=== PATIENT | male | born 1965 | race Caucasian/White ===

== ENCOUNTER 2017-02-18 16:55 | Emergency (ER) | payer OTHER ==
[~2017-02-18] VITALS: Ht 185.4 cm; Wt 95.3 kg
[~2017-02-18 16:55] MED LIST: FLEXERIL10 MG PO; FLEXERIL5 MG PO; HYDROCODONE BIT1 T11 PO; KEFLEX500 MG PO; MEDROL DOSEPAK4 MG PO; MOTRIN50 MG PO; MOTRIN800 MG PO; Motrin,Rufen800 MG PO; NAPROSYN500 MG PO; NKHM; NORCO 5-325 TA1 EACH PO; PERCOCET 325 MG1 TA2 PO; PRILOSEC20 M1 PO
[2017-02-18 17:05] VITALS: BP 134/68
[2017-02-18] MEDS ORDERED: HYDROCODONE BIT1 T11 PO (19:04)
[2017-02-18] MEDS ORDERED: CYCLOBENZAPRINE5 M3 PO (19:04)
[2017-02-18] MEDS ORDERED: MEDROL DOSEPAK4 MG PO (19:04)
== END 2017-02-19 01:05 | disposition home or self-care (01) ==
LOC: ED 16:55
DX: M54.5 Low back pain (principal); F17.200 Nicotine dependence, unspecified, uncomplicated; Z79.899 Other long term (current) drug therapy; Z88.4 Allergy status to anesthetic agent; W19.XXXA Unspecified fall, initial encounter; Y93.89 Activity, other specified; Y92.89 Other specified places as the place of occurrence of the external cause; Y99.9 Unspecified external cause status

== ENCOUNTER → 2017-02-19 | Outpatient (CLI) | payer OTHER ==
[~2017-02-19] MED LIST changes: +CYCLOBENZAPRINE5 M3 PO
== END | disposition home or self-care (01) ==
LOC: CARD 15:24
DX: R55 Syncope and collapse (principal)

== ENCOUNTER → 2017-03-01 | Outpatient (CLI) | payer OTHER | END | disposition home or self-care (01) | LOC: RAD 09:56 | DX: M25.562 Pain in left knee (principal) ==

== ENCOUNTER 2017-08-27 15:20 | Emergency (ER) | payer OTHER ==
[2017-08-27 15:41] LABS: BASO % 0.4 % (0.0-1.0); EOS # 0.2 10*3/uL (0.0-0.4); EOS % 1.8 % (1.0-4.0); HEMATOCRIT 39.5 % (42.0-52.0); HEMOGLOBIN 13.9 g/dl (14.0-18.0); LYMPH # 2.9 10*3/uL (1.3-4.4); LYMPH % 32.8 % (27.0-41.0); MEAN CELL VOLUME 93.2 fl (80.0-94.0); MEAN CORPUSCULAR HGB 32.8 pg (27.0-31.0); MEAN CORPUSCULAR HGB CONC 35.2 g/dl (33.0-37.0); MEAN PLATELET VOLUME 9.7 fl (9.6-12.3); MONO # 0.8 10*3/uL (0.1-1.0); MONO % 9.2 % (3.0-9.0); NEUT # 4.9 10*3/uL (2.3-7.9); NEUT % 55.5 % (47.0-73.0); PLATELET COUNT AUTOMATED 266 10*3/uL (130-400); RED BLOOD COUNT 4.24 10*6/uL (4.50-5.90); RED CELL DISTRI WIDTH 13.2 % (0-14.5); WHITE BLOOD COUNT 8.9 10*3/uL (4.8-10.8)
[2017-08-27 15:55] LABS: ALBUMIN 3.9 gm/dl (3.1-4.5); ALKALINE PHOSPHATASE 81 U/L (45-117); BUN 8 mg/dl (7-24); CHLORIDE 107 mmol/L (98-107); CREATININE 0.75 mg/dL (0.70-1.30); MAGNESIUM 2.3 mg/dL (1.5-2.1); POTASSIUM 3.5 mmol/L (3.5-5.1); SGOT/AST 23 IU/L (3-35); SGPT/ALT 34 U/L (12-78); SODIUM 139 mmol/L (136-145)
[2017-08-27 16:24] LABS: URINE AMPHETAMINES < 1000 (1000ng/ml); URINE BARBITURATES < 200 (200ng/ml); URINE BENZODIAZEPINES < 200 (200ng/ml); URINE CANNABINOIDS (THC) < 50 (50ng/ml); URINE COCAINE < 300 (300ng/ml); URINE METHADONE < 300 (300ng/ml); URINE OPIATES < 300 (300ng/ml)
[2017-08-27 16:26] LABS: URINE PHENCYCLIDINE < 25 (25ng/ml)
[2017-08-27 18:21] VITALS: BP 136/75
== END 2017-08-27 18:37 | disposition left against medical advice (07) ==
LOC: ED 15:20
PROVIDERS: Emergency Medicine
DX: I63.9 Cerebral infarction, unspecified (principal); Z79.899 Other long term (current) drug therapy; Z88.4 Allergy status to anesthetic agent

== ENCOUNTER → 2017-09-20 | Outpatient (CLI) | payer OTHER | END | disposition home or self-care (01) | LOC: CARD 08:03 → US 09:30 | DX: I65.23 Occlusion and stenosis of bilateral carotid arteries (principal); I51.7 Cardiomegaly ==

== ENCOUNTER → 2018-03-26 | Outpatient (CLI) | payer OTHER | END | disposition home or self-care (01) | LOC: RAD 14:38 | DX: M25.474 Effusion, right foot (principal) ==

== ENCOUNTER 2019-08-06 11:26 | Emergency (ER) | payer OTHER ==
[~2019-08-06] VITALS: Ht 187.9 cm; Wt 95.3 kg
[2019-08-06 11:26] VITALS: BP 154/81
[2019-08-06 12:28] LABS: HEMATOCRIT 45.5 % (42.0-52.0); HEMOGLOBIN 15.4 g/dl (14.0-18.0); MEAN CORPUSCULAR HGB 32.8 pg (27.0-31.0); MEAN CORPUSCULAR HGB CONC 33.8 g/dl (33.0-37.0); MEAN PLATELET VOLUME 9.7 fl (9.6-12.3); PLATELET COUNT AUTOMATED 327 10*3/uL (130-400); RED BLOOD COUNT 4.69 10*6/uL (4.50-5.90); RED CELL DISTRI WIDTH 13.6 % (0-14.5); WHITE BLOOD COUNT 17.2 10*3/uL (4.8-10.8)
[2019-08-06 12:39] LABS: ACT PARTIAL THROMBO TIME 25.8 SECONDS (20.0-32.1); INTERNATIONAL NORM RATIO 0.9 (2.0-3.5)
[2019-08-06 12:45] LABS: ALBUMIN 4.1 gm/dl (3.1-4.5); ALKALINE PHOSPHATASE 81 U/L (45-117); BUN 16 mg/dl (7-24); CHLORIDE 108 mmol/L (98-107); CREATININE 0.72 mg/dL (0.70-1.30); POTASSIUM 4.3 mmol/L (3.5-5.1); SGOT/AST 13 IU/L (3-35); SGPT/ALT 33 U/L (12-78); SODIUM 140 mmol/L (136-145); TOTAL PROTEIN 7.5 gm/dL (6.4-8.2)
[2019-08-06 12:49] LABS: PLATELET SUFFICIENCY NORMAL (NORMAL); TOTAL CELLS COUNTED 100 #CELLS
[2019-08-06] MEDS ORDERED: CLINDAMYCIN150 MG PO (15:01)
[2019-08-06] MEDS ORDERED: CIPRO500 MG PO (15:01)
[2019-08-06] MEDS ORDERED: NORCO 5-325 TA1 EACH PO (15:03)
[2019-08-07] MEDS ORDERED: GABAPENTIN400 MG PO (12:41)
[2019-08-07] MEDS ORDERED: ST. JOSEPH ASPI81 MG PO (12:43)
== END 2019-08-06 15:34 | disposition left against medical advice (07) ==
LOC: ED 11:26
PROVIDERS: Emergency Medicine
DX: K11.20 Sialoadenitis, unspecified (principal); F17.200 Nicotine dependence, unspecified, uncomplicated; Z88.4 Allergy status to anesthetic agent; Z79.899 Other long term (current) drug therapy; Z86.73 Personal history of transient ischemic attack (TIA), and cerebral infarction without residual deficits

== ENCOUNTER 2019-08-07 05:54 | Inpatient (IN) | payer OTHER ==
[~2019-08-07] VITALS: Ht 187.9 cm; Wt 86.7 kg
[~2019-08-07 05:54] MED LIST changes: +CIPRO500 MG PO; +CLINDAMYCIN150 MG PO
[2019-08-07 05:55] VITALS: BP 135/104
[2019-08-07 06:39] LABS: HEMATOCRIT 43.6 % (42.0-52.0); HEMOGLOBIN 14.9 g/dl (14.0-18.0); MEAN CELL VOLUME 96.5 fl (80.0-94.0); MEAN CORPUSCULAR HGB CONC 34.2 g/dl (33.0-37.0); MEAN PLATELET VOLUME 9.6 fl (9.6-12.3); PLATELET COUNT AUTOMATED 301 10*3/uL (130-400); RED BLOOD COUNT 4.52 10*6/uL (4.50-5.90); RED CELL DISTRI WIDTH 13.4 % (0-14.5); WHITE BLOOD COUNT 18.1 10*3/uL (4.8-10.8)
[2019-08-07 06:55] LABS: BUN 11 mg/dl (7-24); CHLORIDE 106 mmol/L (98-107); CREATININE 0.72 mg/dL (0.70-1.30); POTASSIUM 4.1 mmol/L (3.5-5.1); SODIUM 138 mmol/L (136-145)
[2019-08-07 06:57] LABS: PLATELET SUFFICIENCY NORMAL (NORMAL); TOTAL CELLS COUNTED 100 #CELLS
[2019-08-07 07:25] VITALS: BP 144/84
[2019-08-07 08:37] VITALS: BP 142/82
--- NOTE | 2019-08-07 08:38 | NUR ---
Patient resting in bed with eyes closed. Respirations easy and regular. No signs of distress/discomfort. Call light within reach.
--- NOTE | 2019-08-07 09:32 | NUR ---
Resident in to see patient for exam. Patient reported to her that his pain was back, 10/10 described as sharp, difficulty to swallow. Patient given morphine for pain and encouraged to use call light will continue to monitor.
--- NOTE | 2019-08-07 10:58 | NUR ---
Bed assigned for patient. Inpatient nurse will call when ready for report. Will continue to monitor.
[2019-08-07 11:40] VITALS: BP 125/77
--- NOTE | 2019-08-07 11:45 | NUR ---
Time: 1144 A 54 year old MALE admitted to 5E under services of DR. EITAN GILES,MARIAN. Pt. arrived via ambulatory from ER. Chief complaint: SUBMANDIBULAR SIALOADENITIS. SAM FARLEY
--- NOTE | 2019-08-07 12:00 | NUR ---
IN TO ROOM. PATIENT AWAKE, ALERT AND ORIENTED SITTING ON SIDE OF BED. C/O OF PAIN TO LEFT JAW AREA WITH SWALLOWING. NO SOB NOTED AND NO S/S OF DISTRESS. RESPIRATIONS ARE EASY AND REGULAR. WARM COMPRESS APPLIED TO SUBMANDIBULAR AREA. FAMILY IN ROOM. WILL CONTINUE TO MONITOR.
[2019-08-07] MEDS ORDERED: GABAPENTIN400 MG PO (12:41)
[2019-08-07] MEDS ORDERED: ST. JOSEPH ASPI81 MG PO (12:43)
--- NOTE | 2019-08-07 13:00 | NUR ---
PT COMPLAINS OF THROAT/JAW PAIN ON THE LEFT SIDE THAT WORSENS WITH SWALLOWING. PT RATES PAIN 10/10. PRN MORPHINE ADMINSTERED AT THIS TIME. WILL MONITOR FOR EFFECTIVENESS.
--- NOTE | 2019-08-07 14:30 | NUR ---
PATIENT SLEEPING IN BED. SO S/S OF DISTRESS OR PAIN. PRN MORPHINE CONSIDERED EFFECTIVE.
[2019-08-07 16:00] VITALS: BP 128/82
--- NOTE | 2019-08-07 17:30 | NUR ---
PT COMPLAINS OF L JAW/THROAT PAIN THAT WORSENS WITH SWALLOWING. PATIENT RATES PAIN A 8/10. PRN MORPHONE ADMINISTERED AT THIS TIME. WILL MONITOR FOR EFFECTIVENESS.
--- NOTE | 2019-08-07 18:24 | NUR ---
IN TO ROOM. PATIENT RESTING WITH EYES CLOSED. MORPHINE CONSIDERED EFFECTIVE. NO STATED COMPLAINTS.
[2019-08-07 20:00] VITALS: BP 124/71
[2019-08-08] VITALS: BP 131/68
--- NOTE | 2019-08-08 04:20 | NUR ---
PT SLEEPING IN BED ON LEFT SIDE. RESP-EASY AND REGULAR. CALL LIGHT IN REACH.
[2019-08-08 06:17] LABS: HEMATOCRIT 42.1 % (42.0-52.0); HEMOGLOBIN 14.2 g/dl (14.0-18.0); MEAN CELL VOLUME 96.8 fl (80.0-94.0); MEAN CORPUSCULAR HGB 32.6 pg (27.0-31.0); MEAN CORPUSCULAR HGB CONC 33.7 g/dl (33.0-37.0); MEAN PLATELET VOLUME 10.1 fl (9.6-12.3); PLATELET COUNT AUTOMATED 300 10*3/uL (130-400); RED BLOOD COUNT 4.35 10*6/uL (4.50-5.90); RED CELL DISTRI WIDTH 13.2 % (0-14.5); WHITE BLOOD COUNT 23.4 10*3/uL (4.8-10.8)
[2019-08-08 06:19] LABS: BUN 10 mg/dl (7-24); CHLORIDE 105 mmol/L (98-107); POTASSIUM 3.7 mmol/L (3.5-5.1); SODIUM 139 mmol/L (136-145)
[2019-08-08 06:54] LABS: PLATELET SUFFICIENCY NORMAL (NORMAL); TOTAL CELLS COUNTED 100 #CELLS
[2019-08-08 08:00] VITALS: BP 145/83
--- NOTE | 2019-08-08 11:42 | NUR ---
MORPHINE GIVEN FOR RT SIDED FACIAL PAIN RATED 8/10 INTERMITTENT AND THROBING. CALL LIGHT IN REACH. WILL MONITOR. EDUCATED ON PAIN MGMT.
[2019-08-08 12:00] VITALS: BP 142/85
--- NOTE | 2019-08-08 14:06 | NUR ---
NORCO GIVEN FOR PAIN RATED 4/10 TO RT SIDE OF FACE FOLLOWING MORPHINE. CALL LIGHT IN REACH. WILL MONITOR.
[2019-08-08 16:00] VITALS: BP 135/80
[2019-08-08 20:00] VITALS: BP 130/75
[2019-08-09] VITALS: BP 128/69
[2019-08-09 06:23] LABS: BUN 15 mg/dl (7-24); CHLORIDE 105 mmol/L (98-107); SODIUM 138 mmol/L (136-145)
[2019-08-09 06:33] LABS: CREATININE 0.79 mg/dL (0.70-1.30)
[2019-08-09 06:43] LABS: BASO % 0.2 % (0.0-1.0); EOS # 0.2 10*3/uL (0.0-0.4); EOS % 1.5 % (1.0-4.0); HEMOGLOBIN 14.2 g/dl (14.0-18.0); LYMPH # 2.9 10*3/uL (1.3-4.4); LYMPH % 20.4 % (27.0-41.0); MEAN CELL VOLUME 96.6 fl (80.0-94.0); MEAN CORPUSCULAR HGB 32.6 pg (27.0-31.0); MEAN CORPUSCULAR HGB CONC 33.8 g/dl (33.0-37.0); MEAN PLATELET VOLUME 10.2 fl (9.6-12.3); MONO # 1.1 10*3/uL (0.1-1.0); MONO % 7.4 % (3.0-9.0); NEUT % 70.1 % (47.0-73.0); PLATELET COUNT AUTOMATED 328 10*3/uL (130-400); RED BLOOD COUNT 4.35 10*6/uL (4.50-5.90); RED CELL DISTRI WIDTH 13.2 % (0-14.5); WHITE BLOOD COUNT 14.3 10*3/uL (4.8-10.8)
[2019-08-09 08:00] VITALS: BP 122/78
[2019-08-09] MEDS ORDERED: AUGMENTIN 875875 MG PO (08:37)
--- NOTE | 2019-08-09 09:42 | NUR ---
PT DISCHARGED AT THIS TIME. IV REMOVED AND PRESSURE DRESSING APPLIED. VERBALIZED UNDERSTANDING OF DISCHARGE INSTRUCTION.
== END 2019-08-09 11:37 | disposition home or self-care (01) | DRG 156 ==
LOC: ED 05:54 → 5E 06:55 → EDHOLD 06:55 → 5E 11:04
PROVIDERS: Nurse Practitioner; Student in an Organized Health Care Education/Training Program; ADMIT Internal Medicine
DX: K11.21 Acute sialoadenitis (principal); K21.9 Gastro-esophageal reflux disease without esophagitis; F17.210 Nicotine dependence, cigarettes, uncomplicated; D72.810 Lymphocytopenia; R73.9 Hyperglycemia, unspecified; D72.829 Elevated white blood cell count, unspecified; K02.9 Dental caries, unspecified; T38.0X5A Adverse effect of glucocorticoids and synthetic analogues, initial encounter; Y92.89 Other specified places as the place of occurrence of the external cause; Z82.49 Family history of ischemic heart disease and other diseases of the circulatory system; Z88.4 Allergy status to anesthetic agent; Z79.899 Other long term (current) drug therapy; Z79.82 Long term (current) use of aspirin; Z71.6 Tobacco abuse counseling; Z72.89 Other problems related to lifestyle

== ENCOUNTER 2019-09-02 11:36 | Inpatient (IN) | payer OTHER ==
[~2019-09-02] VITALS: Ht 185.4 cm; Wt 82.2 kg
[2019-09-02] VITALS (9 sets, daily range): BP systolic 121–149; BP diastolic 54–87
[~2019-09-02 11:36] MED LIST changes: +AUGMENTIN 875875 MG PO; +GABAPENTIN400 MG PO; +ST. JOSEPH ASPI81 MG PO
[2019-09-02 11:57] LABS: BASO % 0.2 % (0.0-1.0); EOS # 0.1 10*3/uL (0.0-0.4); EOS % 0.8 % (1.0-4.0); HEMATOCRIT 40.7 % (42.0-52.0); HEMOGLOBIN 13.9 g/dl (14.0-18.0); LYMPH # 2.6 10*3/uL (1.3-4.4); LYMPH % 20.7 % (27.0-41.0); MEAN CELL VOLUME 95.5 fl (80.0-94.0); MEAN CORPUSCULAR HGB 32.6 pg (27.0-31.0); MEAN CORPUSCULAR HGB CONC 34.2 g/dl (33.0-37.0); MEAN PLATELET VOLUME 9.4 fl (9.6-12.3); MONO # 0.8 10*3/uL (0.1-1.0); MONO % 6.1 % (3.0-9.0); NEUT # 9.2 10*3/uL (2.3-7.9); PLATELET COUNT AUTOMATED 320 10*3/uL (130-400); RED BLOOD COUNT 4.26 10*6/uL (4.50-5.90); RED CELL DISTRI WIDTH 13.1 % (0-14.5); WHITE BLOOD COUNT 12.7 10*3/uL (4.8-10.8)
[2019-09-02 12:14] LABS: ALKALINE PHOSPHATASE 71 U/L (45-117); BUN 11 mg/dl (7-24); CHLORIDE 106 mmol/L (98-107); CREATININE 0.78 mg/dL (0.70-1.30); POTASSIUM 3.7 mmol/L (3.5-5.1); SGOT/AST 26 IU/L (3-35); SGPT/ALT 26 U/L (12-78); SODIUM 135 mmol/L (136-145); TOTAL PROTEIN 7.2 gm/dL (6.4-8.2)
[2019-09-02 12:18] LABS: TROPONIN I < 0.015 ng/ml (<0.045)
--- NOTE | 2019-09-02 17:25 | NUR ---
ORTHOSTATIC BLOOD PRESSURES AND PULSE RATES SUPINE: 115/61 PULSE 60 SITTIN/68 PULSE 67 STANDIN/74 PULSE 72
[2019-09-02 19:46] LABS: BILIRUBIN NEGATIVE (NEGATIVE); BLOOD NEGATIVE (NEGATIVE); CLARITY SL CLOUDY (CLEAR); COLOR YELLOW (YELLOW); GLUCOSE NEGATIVE (NEGATIVE); KETONE TRACE (NEGATIVE); LEUKO ESTERASE NEGATIVE (NEGATIVE); NITRITE NEGATIVE (NEGATIVE); PH 6.5 (5.0-9.0); SPECIFIC GRAVITY 1.015 (1.005-1.030); UROBILINOGEN 0.2 E.U./dl (0.2-1.0)
[2019-09-02 19:55] LABS: EPITHELIAL CELLS 0-2
--- NOTE | 2019-09-02 20:23 | NUR ---
PATIENT SLEEPING. AROUSES EASILY FOR SHIFT ASSESSMENT. STATES HIS CHEST PAIN IS BETTER THAN EARLIER, RATED 2/10. NO FURTHER VOICED COMPLAINTS AT THIS TIME. PLEASANT AND COOPERATIVE WITH CARE. CALL LIGHT IN REACH.
[2019-09-03] VITALS: BP 118/75
[2019-09-03 07:01] LABS: BASO % 0.3 % (0.0-1.0); EOS # 0.3 10*3/uL (0.0-0.4); EOS % 2.9 % (1.0-4.0); HEMATOCRIT 41.3 % (42.0-52.0); HEMOGLOBIN 13.9 g/dl (14.0-18.0); LYMPH % 22.6 % (27.0-41.0); MEAN CELL VOLUME 97.9 fl (80.0-94.0); MEAN CORPUSCULAR HGB 32.9 pg (27.0-31.0); MEAN CORPUSCULAR HGB CONC 33.7 g/dl (33.0-37.0); MEAN PLATELET VOLUME 9.4 fl (9.6-12.3); MONO # 0.8 10*3/uL (0.1-1.0); MONO % 8.6 % (3.0-9.0); NEUT # 5.7 10*3/uL (2.3-7.9); NEUT % 65.3 % (47.0-73.0); PLATELET COUNT AUTOMATED 305 10*3/uL (130-400); RED BLOOD COUNT 4.22 10*6/uL (4.50-5.90); RED CELL DISTRI WIDTH 13.3 % (0-14.5); WHITE BLOOD COUNT 8.7 10*3/uL (4.8-10.8)
[2019-09-03 07:29] LABS: ALBUMIN 3.6 gm/dl (3.1-4.5); BUN 8 mg/dl (7-24); CHLORIDE 108 mmol/L (98-107); CHOLESTEROL 188 mg/dL (<200); CREATININE 0.85 mg/dL (0.70-1.30); FREE T4 1.04 ng/dl (0.76-1.46); HDL CHOLESTEROL 37 mg/dl (40-60); LDL CHOLESTEROL 128 mg/dL (9-159); PHOSPHOROUS 3.4 mg/dL (2.5-4.9); POTASSIUM 4.1 mmol/L (3.5-5.1); SGOT/AST 17 IU/L (3-35); SGPT/ALT 26 U/L (12-78); SODIUM 139 mmol/L (136-145); TOTAL PROTEIN 6.5 gm/dL (6.4-8.2); TRIGLYCERIDES 113 mg/dl (<150); VLDL CHOLESTEROL 23 mg/dL (6-40)
--- NOTE | 2019-09-03 07:32 | NUR ---
24 HOUR CHART CHECK COMPLETE
[2019-09-03 07:34] LABS: ALKALINE PHOSPHATASE 67 U/L (45-117); THYROID STIM HORMONE (HS) 0.381 uIU/ml (0.358-4.75)
[2019-09-03 08:00] VITALS: BP 124/82
--- NOTE | 2019-09-03 08:00 | NUR ---
PATIENT ASSESSMENT COMPLETE AT THIS TIME. PATIENT DENIES ANY CP/SOB AT THIS TIME. MANUAL B/P 118/66. CALL LIGHT WITHIN REACH WILL CONTINUE TO MONITOR.
--- NOTE | 2019-09-03 08:30 | NUR ---
Scout Sniper in to talk to patient. Patient states lives at home with his . There are 0 steps in the home. Physician: Dr. Navjot Gotti [facility]acy: [facility] Home health services: none Patient's level of ADLs: INDEPENDENT Patient has working utilities: yes DME: none Follow-up physician's appointment after d/c: he prefers to make his own follow up appt after discharge Does patient want to access PORTAL?: no Discharge plan discussed with patient. He lives at home with his . He is independent in his ADLs and ambulation. Discussed home health care services and he denies any home needs at this time. When medically stable he will be discharged to home. His will provide transportation on discharge. SID WILLARD
--- NOTE | 2019-09-03 12:45 | NUR ---
INFORMED CONSENT OBTAINED FOR LEXISCAN NUCLEAR STRESS TEST WITH DR. LAIRD. RESTING EKG NSR WITH A RESTING HR OF 62 WITH BP OF 102/62. LUNGS CLEAR WITH SPO2 OF 97% ON ROOM AIR. PT COMPLETED A 1:00 LEXISCAN PROTOCOL RECEIVING LEXISCAN 0.4 MG IV OVER 10 SECONDS. HAD NO CHEST PAIN OR ANY EKG CHANGES. HAD C/O "ODD FEELING" THAT RESOLVED IN RECOVERY. HAD A PEAK HR OF 90 WITH BP OF 120/62. LAST RECOVERY HR OF 84 WITH BP OF 128/60. AWAITING SCANNING IN STABLE CONDITION.
[2019-09-03 14:00] VITALS: BP 130/60
[2019-09-03 16:00] VITALS: BP 124/67
[2019-09-03 20:00] VITALS: BP 129/79
[2019-09-04] VITALS: BP 107/60
--- NOTE | 2019-09-04 07:30 | NUR ---
24 HOUR CHART CHECK COMPLETED
[2019-09-04 08:00] VITALS: BP 118/68
--- NOTE | 2019-09-04 08:00 | NUR ---
PATIENT ASSESSMENT COMPLETED AT THIS TIME, DENIES ANY CHEST PAIN OR SHORTNESS OF BREATH OR ANY PAIN AT THIS TIME. MANUAL BLOOD PRESSURE 118/68. CALL LIGHT WITHIN REACH, WILL CONTINUE TO MONITOR.
--- NOTE | 2019-09-04 10:56 | NUR ---
PATIENT DISCHARGED AT THIS TIME ALL DISCHARGE INFORMATION EXPLAINED TO PATIENT ALL QUESTIONS ANSWERED AT THIS TIME. WRITTEN SCRIPT GIVEN TO PATIENT FOR OUTPATIENT EEG. IV AND MONITOR REMOVED. PATIENT AMBULATED OFF OF FLOOR WITH .
== END 2019-09-04 10:56 | disposition home or self-care (01) | DRG 243 ==
LOC: ED 11:36 → EDHOLD 12:59 → 4E 12:59
PROVIDERS: Emergency Medicine; Internal Medicine; ADMIT Internal Medicine
DX: K21.9 Gastro-esophageal reflux disease without esophagitis (principal); R55 Syncope and collapse; R00.1 Bradycardia, unspecified; E87.1 Hypo-osmolality and hyponatremia; D72.829 Elevated white blood cell count, unspecified; D53.9 Nutritional anemia, unspecified; M25.562 Pain in left knee; G89.29 Other chronic pain; F41.9 Anxiety disorder, unspecified; F17.210 Nicotine dependence, cigarettes, uncomplicated; Z96.652 Presence of left artificial knee joint; Z86.73 Personal history of transient ischemic attack (TIA), and cerebral infarction without residual deficits; Z79.82 Long term (current) use of aspirin; Z79.899 Other long term (current) drug therapy; Z71.6 Tobacco abuse counseling; Z88.8 Allergy status to other drugs, medicaments and biological substances; Z82.49 Family history of ischemic heart disease and other diseases of the circulatory system

== ENCOUNTER → 2019-09-22 | Outpatient (CLI) | payer OTHER ==
--- NOTE | ~2019-09-22 | HM ---
[place], [place] HOLTER MONITOR REPORT [id number] UN[facility] #: [id number] ROOM: DOCTOR: MARIAN LAIRD MD BIRTHDATE: [birth year] DOS: 48-HOUR HOLTER MONITOR REPORT The average heart rate was 75 beats per minute. The minimum heart rate was 48 beats per minute. The maximum heart rate was 121 beats per minute. Ventricular ectopic activity consisted of 519 beats of which 2 were in couplets, 501 were in single PVCs, 16 were single ventricular ectopics. The patient had about 10 hours of bradycardia, the slowest single episode of bradycardia lasted 4 minutes and it was 48 beats per minute. The patient's rhythm included 2 hours and 40 minutes of tachycardia. The maximum heart rate was 121 beats per minute and it lasted for 1 minute. Supraventricular ectopy activity consisted of 55 beats of which 13 were in one run, 6 were in atrial couplets, 1 was late beat and 35 were single PACs. The longest supraventricular run consisted of 13 beats with maximum heart rate of 145 beats per minute. The patient recording shows that when the patient was feeling dizzy; the timings were 10:12 in the morning and then 10:13 in the evening, but both these times, his underlying rhythm was normal rhythm. IMPRESSION: 1. This is abnormal Holter monitor. 2. It does not explain the underlying cause of the patient's dizziness or syncope. MARIAN LAIRD MD CM:HOLTER:HOLTER MONITOR REPORT [id number] MARIAN LAIRD MD
== END | disposition home or self-care (01) ==
LOC: CARD 09:52
DX: R55 Syncope and collapse (principal)

== ENCOUNTER → 2019-11-11 | Outpatient (CLI) | payer OTHER | END | disposition home or self-care (01) | LOC: RAD 09:14 | DX: J44.9 Chronic obstructive pulmonary disease, unspecified (principal); F17.200 Nicotine dependence, unspecified, uncomplicated ==

== ENCOUNTER 2020-03-07 13:52 | Emergency (ER) | payer OTHER ==
[~2020-03-07] VITALS: Ht 187.9 cm; Wt 83.5 kg
[2020-03-07 13:56] VITALS: BP 161/69
[2020-03-07] MEDS ORDERED: NORCO 5-325 TA1 EACH PO (16:39)
== END 2020-03-07 17:00 | disposition home or self-care (01) ==
LOC: ED 13:52
DX: S89.92XA Unspecified injury of left lower leg, initial encounter (principal); J44.9 Chronic obstructive pulmonary disease, unspecified; K21.9 Gastro-esophageal reflux disease without esophagitis; Z88.4 Allergy status to anesthetic agent; Z79.82 Long term (current) use of aspirin; Z79.899 Other long term (current) drug therapy; X50.1XXA Overexertion from prolonged static or awkward postures, initial encounter; Y93.89 Activity, other specified; Y92.89 Other specified places as the place of occurrence of the external cause; Y99.8 Other external cause status

== ENCOUNTER → 2020-06-20 | Emergency (ER) | payer OTHER ==
[~2020-06-20] VITALS: Ht 185.4 cm; Wt 89.8 kg
[2020-06-20 13:38] VITALS: BP 141/69
== END ==
LOC: ED 13:26
DX: S09.93XA Unspecified injury of face, initial encounter (principal); S49.91XA Unspecified injury of right shoulder and upper arm, initial encounter; K21.9 Gastro-esophageal reflux disease without esophagitis; F17.200 Nicotine dependence, unspecified, uncomplicated; Z88.4 Allergy status to anesthetic agent; Z79.899 Other long term (current) drug therapy; Z79.82 Long term (current) use of aspirin; W18.39XA Other fall on same level, initial encounter; Y93.89 Activity, other specified; Y92.89 Other specified places as the place of occurrence of the external cause; Y99.8 Other external cause status

== ENCOUNTER → 2020-07-19 | Outpatient (CLI) | payer OTHER | END | disposition home or self-care (01) | LOC: CT 09:59 | DX: R51 Headache (principal) ==

== ENCOUNTER → 2020-09-26 | Outpatient (CLI) | payer OTHER ==
[~2020-09-26] MED LIST changes: +IBU800 M1 PO; +OMEPRAZOLE40 MG PO; +PROAIR HFA8.5 GM INH; +TRAMADOL HCL50 MG PO
== END | disposition home or self-care (01) ==
LOC: MRI 13:00
PROVIDERS: ATTEND Orthopaedic Surgery
DX: M19.011 Primary osteoarthritis, right shoulder (principal); M75.111 Incomplete rotator cuff tear or rupture of right shoulder, not specified as traumatic; M75.91 Shoulder lesion, unspecified, right shoulder; M89.311 Hypertrophy of bone, right shoulder; M75.51 Bursitis of right shoulder; M75.41 Impingement syndrome of right shoulder

== ENCOUNTER → 2020-10-06 | Outpatient (CLI) | payer OTHER ==
[2020-10-06 13:54] LABS: BASO % 0.3 % (0.0-1.0); EOS # 0.1 10*3/uL (0.0-0.4); EOS % 0.8 % (1.0-4.0); LYMPH # 2.6 10*3/uL (1.3-4.4); MEAN CELL VOLUME 93.2 fl (80.0-94.0); MEAN CORPUSCULAR HGB 31.7 pg (27.0-31.0); MEAN PLATELET VOLUME 9.8 fl (9.6-12.3); MONO # 0.9 10*3/uL (0.1-1.0); MONO % 6.2 % (3.0-9.0); NEUT # 10.9 10*3/uL (2.3-7.9); NEUT % 74.4 % (47.0-73.0); PLATELET COUNT AUTOMATED 357 10*3/uL (130-400); RED BLOOD COUNT 4.83 10*6/uL (4.50-5.90); RED CELL DISTRI WIDTH 13.2 % (0-14.5); WHITE BLOOD COUNT 14.6 10*3/uL (4.8-10.8)
[2020-10-06 14:05] LABS: BUN 10 mg/dl (7-24); CHLORIDE 107 mmol/L (98-107); CREATININE 0.71 mg/dL (0.70-1.30); POTASSIUM 3.7 mmol/L (3.5-5.1); SODIUM 138 mmol/L (136-145)
== END | disposition home or self-care (01) ==
LOC: LAB 02:32 → COVID19 02:32
PROVIDERS: ATTEND Orthopaedic Surgery
DX: Z01.818 Encounter for other preprocedural examination (principal); I21.9 Acute myocardial infarction, unspecified; M19.011 Primary osteoarthritis, right shoulder; M75.41 Impingement syndrome of right shoulder; Z20.828 Contact with and (suspected) exposure to other viral communicable diseases

== ENCOUNTER → 2020-10-11 | Day surgery (SDC) | payer OTHER ==
[2020-10-06 12:25] VITALS: BP 135/91
[~2020-10-11] VITALS: Ht 182.8 cm; Wt 88.5 kg
[2020-10-11 07:05] VITALS: BP 140/89
[2020-10-11 09:22] VITALS: BP 151/107
[2020-10-11 09:35] VITALS: BP 152/86
[2020-10-11 09:50] VITALS: BP 133/70
[2020-10-11 10:05] VITALS: BP 140/82
[2020-10-11 10:36] VITALS: BP 141/86
== END ==
LOC: SDC 10-06 12:30
PROVIDERS: ATTEND Orthopaedic Surgery
DX: M75.41 Impingement syndrome of right shoulder (principal); M19.011 Primary osteoarthritis, right shoulder; M75.111 Incomplete rotator cuff tear or rupture of right shoulder, not specified as traumatic; J44.9 Chronic obstructive pulmonary disease, unspecified; K21.9 Gastro-esophageal reflux disease without esophagitis; F17.210 Nicotine dependence, cigarettes, uncomplicated; Z79.899 Other long term (current) drug therapy

== ENCOUNTER → 2020-11-21 | Outpatient (CLI) | payer OTHER | END | disposition home or self-care (01) | LOC: ORTHO 00:25 | PROVIDERS: ATTEND Orthopaedic Surgery | DX: Z46.89 Encounter for fitting and adjustment of other specified devices (principal); M19.011 Primary osteoarthritis, right shoulder ==

== ENCOUNTER → 2020-12-16 | Outpatient (CLI) | payer OTHER | END | disposition home or self-care (01) | LOC: COVID19 10:19 | PROVIDERS: ATTEND Internal Medicine Nephrology | DX: Z20.822 Contact with and (suspected) exposure to COVID-19 (principal) ==

== ENCOUNTER → 2021-09-06 | Outpatient (CLI) | payer OTHER ==
[2021-09-06 15:20] LABS: CPK 163 U/L (39-308); IRON 101 ug/dL (65-175); TOTAL IRON BINDING CAPACITY 348 ug/dl (250-450)
[2021-09-06 17:41] LABS: FERRITIN 391.7 ng/mL (22.0-322.0)
== END | disposition home or self-care (01) ==
LOC: LAB 14:51
PROVIDERS: ATTEND Internal Medicine
DX: E78.2 Mixed hyperlipidemia (principal)

== ENCOUNTER → 2021-09-14 | Outpatient (CLI) | payer OTHER | END | disposition home or self-care (01) | LOC: RAD 14:47 | PROVIDERS: ATTEND Internal Medicine | DX: M17.0 Bilateral primary osteoarthritis of knee (principal); M25.562 Pain in left knee; M25.78 Osteophyte, vertebrae; M25.762 Osteophyte, left knee ==

== ENCOUNTER → 2021-10-30 | Outpatient (CLI) | payer OTHER | END | disposition home or self-care (01) | LOC: COVID19 16:30 | PROVIDERS: ATTEND Internal Medicine | DX: Z11.52 Encounter for screening for COVID-19 (principal) ==

== ENCOUNTER → 2022-01-31 | Outpatient (CLI) | payer OTHER ==
[2022-01-31 09:55] LABS: ALKALINE PHOSPHATASE 80 U/L (45-117); BUN 17 mg/dl (7-24); CHLORIDE 109 mmol/L (98-107); CREATININE 0.79 mg/dL (0.70-1.30); POTASSIUM 3.8 mmol/L (3.5-5.1); SGOT/AST 22 IU/L (3-35); SGPT/ALT 54 U/L (12-78); SODIUM 139 mmol/L (136-145); TOTAL PROTEIN 7.3 gm/dL (6.4-8.2)
== END | disposition home or self-care (01) ==
LOC: LAB 09:03
PROVIDERS: ATTEND Orthopaedic Surgery
DX: Z79.1 Long term (current) use of non-steroidal anti-inflammatories (NSAID) (principal)

== ENCOUNTER → 2022-04-30 | Outpatient (CLI) | payer OTHER ==
[~2022-04-30] MED LIST changes: +AUGMENTIN 875-875 MG PO
[2022-04-30 09:33] LABS: BASO % 0.2 % (0.0-1.0); EOS # 0.1 10*3/uL (0.0-0.4); EOS % 1.3 % (1.0-4.0); LYMPH % 31.7 % (27.0-41.0); MEAN CELL VOLUME 93.1 fl (80.0-94.0); MEAN CORPUSCULAR HGB 32.6 pg (27.0-31.0); MEAN PLATELET VOLUME 9.8 fl (9.6-12.3); MONO # 0.9 10*3/uL (0.1-1.0); MONO % 9.6 % (3.0-9.0); NEUT # 5.4 10*3/uL (2.3-7.9); NEUT % 56.8 % (47.0-73.0); PLATELET COUNT AUTOMATED 301 10*3/uL (130-400); RED BLOOD COUNT 4.94 10*6/uL (4.50-5.90); WHITE BLOOD COUNT 9.5 10*3/uL (4.8-10.8)
[2022-05-01 03:06] LABS: HBSAG Negative (Negative); HEP B CORE AB, IGM Negative (Negative); HEPATITIS A AB IGM Negative (Negative)
[2022-05-01 05:06] LABS: RHEUMATOID FACTOR 14.6 IU/mL (<14.0)
[2022-05-01 08:08] LABS: HEPATITIS C ANTIBODY 0.1 (0.0-0.9)
[2022-05-01 14:08] LABS: ANTI-RNP ANTIBODIES 0.2 AI (0.0-0.9)
[2022-05-02 05:06] LABS: DVVTMIXRFX CHG (NP); LUPUS DRVVT 48.2 sec (0.0-47.0); PTT-LA 31.8 sec (0.0-51.9)
[2022-05-02 06:08] LABS: LUPUS REFLEX INTERPRETATION Comment: (.)
[2022-05-03 03:07] LABS: CCP ANTIBODIES IGG/IGA 9 units (0-19)
[2022-05-07 19:06] LABS: HLA-B27 ANTIGEN Negative (.)
== END | disposition home or self-care (01) ==
LOC: LAB 09:15
PROVIDERS: ATTEND Orthopaedic Surgery
DX: M25.561 Pain in right knee (principal); M25.562 Pain in left knee

== ENCOUNTER 2022-05-08 12:29 | Emergency (ER) | payer OTHER ==
[~2022-05-08] VITALS: Wt 104.3 kg
[~2022-05-08 12:29] MED LIST changes: -AUGMENTIN 875-875 MG PO
[2022-05-08 12:38] VITALS: BP 146/91
[2022-05-08] MEDS ORDERED: TRAMADOL HCL50 MG PO (14:21)
[2022-05-08] MEDS ORDERED: AUGMENTIN 875-875 MG PO (14:21)
== END 2022-05-08 14:40 | disposition home or self-care (01) ==
LOC: ED 12:29
DX: S62.522B Displaced fracture of distal phalanx of left thumb, initial encounter for open fracture (principal); Z79.899 Other long term (current) drug therapy; Z79.82 Long term (current) use of aspirin; Z98.890 Other specified postprocedural states; Z88.4 Allergy status to anesthetic agent; W22.8XXA Striking against or struck by other objects, initial encounter; Y93.89 Activity, other specified; Y92.89 Other specified places as the place of occurrence of the external cause; Y99.8 Other external cause status

== ENCOUNTER → 2022-10-24 | Outpatient (CLI) | payer OTHER ==
[~2022-10-24] MED LIST changes: +AUGMENTIN 875-875 MG PO
== END | disposition home or self-care (01) ==
LOC: US 08:17
PROVIDERS: ATTEND Internal Medicine
DX: N28.1 Cyst of kidney, acquired (principal); R74.01 Elevation of levels of liver transaminase levels

== ENCOUNTER → 2022-12-18 | Outpatient (CLI) | payer OTHER | END | disposition home or self-care (01) | LOC: RAD 11:11 | PROVIDERS: ATTEND Internal Medicine | DX: J44.1 Chronic obstructive pulmonary disease with (acute) exacerbation (principal) ==

== ENCOUNTER → 2023-01-01 | Outpatient (CLI) | payer OTHER ==
[2023-01-01 15:38] LABS: BASO # 0.1 10*3/uL (0.0-0.1); BASO % 0.4 % (0.0-1.0); EOS # 0.2 10*3/uL (0.0-0.4); EOS % 1.7 % (1.0-4.0); HEMATOCRIT 45.8 % (42.0-52.0); LYMPH # 3.4 10*3/uL (1.3-4.4); MEAN CELL VOLUME 92.5 fl (80.0-94.0); MEAN CORPUSCULAR HGB 32.3 pg (27.0-31.0); MEAN CORPUSCULAR HGB CONC 34.9 g/dl (33.0-37.0); MEAN PLATELET VOLUME 9.6 fl (9.6-12.3); MONO # 1.4 10*3/uL (0.1-1.0); NEUT # 8.6 10*3/uL (2.3-7.9); NEUT % 62.5 % (47.0-73.0); PLATELET COUNT AUTOMATED 322 10*3/uL (130-400); RED BLOOD COUNT 4.95 10*6/uL (4.50-5.90); RED CELL DISTRI WIDTH 13.8 % (0-14.5); WHITE BLOOD COUNT 13.7 10*3/uL (4.8-10.8)
[2023-01-01 16:09] LABS: ALKALINE PHOSPHATASE 90 U/L (46-116); BUN 9 mg/dl (9-23); CHLORIDE 103 mmol/L (98-107); SGPT/ALT 39 U/L (10-49); TOTAL PROTEIN 6.5 gm/dL (6.0-8.0)
== END | disposition home or self-care (01) ==
LOC: LAB 15:10
PROVIDERS: ATTEND Nurse Practitioner Family
DX: L60.3 Nail dystrophy (principal); B35.1 Tinea unguium

== ENCOUNTER → 2023-01-28 | Outpatient (CLI) | payer OTHER ==
[2023-01-28 15:11] LABS: BASO % 0.3 % (0.0-1.0); EOS # 0.1 10*3/uL (0.0-0.4); EOS % 0.8 % (1.0-4.0); HEMATOCRIT 47.2 % (42.0-52.0); LYMPH # 2.5 10*3/uL (1.3-4.4); LYMPH % 24.6 % (27.0-41.0); MEAN CELL VOLUME 92.9 fl (80.0-94.0); MEAN CORPUSCULAR HGB 31.5 pg (27.0-31.0); MEAN CORPUSCULAR HGB CONC 33.9 g/dl (33.0-37.0); MEAN PLATELET VOLUME 9.8 fl (9.6-12.3); MONO # 0.8 10*3/uL (0.1-1.0); MONO % 8.1 % (3.0-9.0); NEUT # 6.5 10*3/uL (2.3-7.9); NEUT % 65.7 % (47.0-73.0); PLATELET COUNT AUTOMATED 325 10*3/uL (130-400); RED BLOOD COUNT 5.08 10*6/uL (4.50-5.90); RED CELL DISTRI WIDTH 13.3 % (0-14.5)
[2023-01-28 15:17] LABS: BILIRUBIN Negative (Negative); BLOOD Negative (Negative); CLARITY Clear (Clear); COLOR Yellow (Yellow); GLUCOSE Negative (Negative); KETONE Negative (Negative); LEUKO ESTERASE Negative (Negative); NITRITE Negative (Negative); UROBILINOGEN 0.2 E.U./dl (0.0-1.0)
[2023-01-28 15:29] LABS: ACT PARTIAL THROMBO TIME 25.6 SECONDS (20.0-32.1); ALKALINE PHOSPHATASE 85 U/L (46-116); BUN 8 mg/dl (9-23); CHLORIDE 110 mmol/L (98-107); INTERNATIONAL NORM RATIO 0.9 (2.0-3.5); POTASSIUM 4.1 mmol/L (3.4-5.1); SGPT/ALT 52 U/L (10-49); TOTAL PROTEIN 7.3 gm/dL (6.0-8.0)
[2023-01-28 16:15] LABS: RBC 0-2 rbc/hpf (0-2); WBC 0-2 wbc/hpf (0-5)
== END | disposition home or self-care (01) ==
LOC: LAB 14:25
PROVIDERS: ATTEND Orthopaedic Surgery
DX: Z01.818 Encounter for other preprocedural examination (principal); M17.12 Unilateral primary osteoarthritis, left knee; I45.89 Other specified conduction disorders

== ENCOUNTER → 2023-06-10 | Outpatient (CLI) | payer OTHER | END | disposition home or self-care (01) | LOC: RAD 15:15 | PROVIDERS: ATTEND Internal Medicine | DX: J44.9 Chronic obstructive pulmonary disease, unspecified (principal) ==

== ENCOUNTER → 2023-07-17 | Outpatient (CLI) | payer OTHER | END | disposition home or self-care (01) | LOC: US 08:41 | PROVIDERS: ATTEND Internal Medicine | DX: R10.13 Epigastric pain (principal) ==

== ENCOUNTER 2023-10-02 15:20 | Emergency (ER) | payer OTHER ==
[~2023-10-02] VITALS: Wt 97.5 kg
[2023-10-02 15:40] VITALS: BP 146/80
[2023-10-02 16:43] LABS: BASO % 0.4 % (0.0-1.0); EOS # 0.2 10*3/uL (0.0-0.4); EOS % 2.5 % (1.0-4.0); HEMATOCRIT 41.2 % (42.0-52.0); LYMPH # 3.5 10*3/uL (1.3-4.4); LYMPH % 37.1 % (27.0-41.0); MEAN CELL VOLUME 92.2 fl (80.0-94.0); MEAN CORPUSCULAR HGB 32.4 pg (27.0-31.0); MEAN CORPUSCULAR HGB CONC 35.2 g/dl (33.0-37.0); MEAN PLATELET VOLUME 9.5 fl (9.6-12.3); MONO # 1.1 10*3/uL (0.1-1.0); MONO % 11.4 % (3.0-9.0); NEUT # 4.5 10*3/uL (2.3-7.9); NEUT % 48.4 % (47.0-73.0); PLATELET COUNT AUTOMATED 277 10*3/uL (130-400); RED BLOOD COUNT 4.47 10*6/uL (4.50-5.90); RED CELL DISTRI WIDTH 13.7 % (0-14.5); WHITE BLOOD COUNT 9.4 10*3/uL (4.8-10.8)
[2023-10-02 17:05] LABS: ALKALINE PHOSPHATASE 87 U/L (46-116); BUN 11 mg/dl (9-23); CHLORIDE 110 mmol/L (98-107); POTASSIUM 3.6 mmol/L (3.4-5.1); SGPT/ALT 44 U/L (5-49); TOTAL PROTEIN 6.3 gm/dL (6.0-8.0)
[2023-10-02 17:37] LABS: BILIRUBIN Negative (Negative); BLOOD Negative (Negative); CLARITY Clear (Clear); COLOR Yellow (Yellow); GLUCOSE Negative (Negative); KETONE Negative (Negative); LEUKO ESTERASE Negative (Negative); NITRITE Negative (Negative)
[2023-10-02 17:52] LABS: MUCOUS 1+; RBC 0-2 rbc/hpf (0-2)
[2023-10-02] MEDS ORDERED: CYCLOBENZAPRINE5 M3 PO (17:58)
[2023-10-02] MEDS ORDERED: PREDNISONE50 MG PO (17:58)
== END 2023-10-02 18:09 | disposition home or self-care (01) ==
LOC: ED 15:20
PROVIDERS: Physician Assistant Medical
DX: M62.830 Muscle spasm of back (principal); J44.9 Chronic obstructive pulmonary disease, unspecified; K21.9 Gastro-esophageal reflux disease without esophagitis; Z88.8 Allergy status to other drugs, medicaments and biological substances; Z98.890 Other specified postprocedural states; Z72.0 Tobacco use

== ENCOUNTER → 2024-06-03 | Outpatient (CLI) | payer OTHER ==
[~2024-06-03] MED LIST changes: +PREDNISONE50 MG PO
[2024-06-03 14:54] LABS: BASO % 0.3 % (0.0-1.0); BILIRUBIN Negative (Negative); BLOOD Negative (Negative); CLARITY Clear (Clear); COLOR Yellow (Yellow); EOS # 0.2 10*3/uL (0.0-0.4); EOS % 1.6 % (1.0-4.0); GLUCOSE Negative (Negative); HEMATOCRIT 40.9 % (42.0-52.0); KETONE Trace (Negative); LEUKO ESTERASE Negative (Negative); LYMPH # 3.1 10*3/uL (1.3-4.4); LYMPH % 31.6 % (27.0-41.0); MEAN CELL VOLUME 92.7 fl (80.0-94.0); MEAN CORPUSCULAR HGB 32.7 pg (27.0-31.0); MEAN CORPUSCULAR HGB CONC 35.2 g/dl (33.0-37.0); MONO # 1.1 10*3/uL (0.1-1.0); MONO % 10.7 % (3.0-9.0); NEUT # 5.5 10*3/uL (2.3-7.9); NEUT % 55.7 % (47.0-73.0); NITRITE Negative (Negative); PLATELET COUNT AUTOMATED 278 10*3/uL (130-400); RED BLOOD COUNT 4.41 10*6/uL (4.50-5.90); RED CELL DISTRI WIDTH 12.9 % (0-14.5); SPECIFIC GRAVITY >= 1.030 (1.001-1.030); WHITE BLOOD COUNT 9.9 10*3/uL (4.8-10.8)
[2024-06-03 15:04] LABS: MUCOUS 1+; RBC 0-2 rbc/hpf (0-2)
[2024-06-03 15:07] LABS: ACT PARTIAL THROMBO TIME 24.5 SECONDS (20.0-32.1)
[2024-06-03 15:17] LABS: ALKALINE PHOSPHATASE 75 U/L (46-116); BUN 13 mg/dl (9-23); CHLORIDE 112 mmol/L (98-107); POTASSIUM 3.7 mmol/L (3.4-5.1); SGPT/ALT 30 U/L (5-49); TOTAL PROTEIN 6.5 gm/dL (6.0-8.0)
== END ==
LOC: LAB 14:18
PROVIDERS: ATTEND Orthopaedic Surgery
DX: Z01.818 Encounter for other preprocedural examination (principal); M17.11 Unilateral primary osteoarthritis, right knee

== ENCOUNTER → 2024-06-25 | Outpatient (CLI) | payer OTHER ==
[~2024-06-25] MED LIST changes: +LIPITOR40 MG PO; +ROPINIROLE HY0.25 MG PO; +XARELTO15 M1 PO; +ZETIA10 MG PO
== END | disposition home or self-care (01) ==
LOC: US 14:52
PROVIDERS: ATTEND Orthopaedic Surgery
DX: I82.441 Acute embolism and thrombosis of right tibial vein (principal); Z96.651 Presence of right artificial knee joint

== ENCOUNTER → 2024-07-20 | Outpatient (CLI) | payer OTHER | END | disposition home or self-care (01) | LOC: RAD 15:06 | PROVIDERS: ATTEND Internal Medicine | DX: M25.561 Pain in right knee (principal) ==

== ENCOUNTER → 2024-08-21 | Outpatient (CLI) | payer OTHER ==
[2024-08-22 15:07] LABS: ANTICARDIOLIPIN AB, IGG, QN <9 GPL U/mL (0-14); ANTICARDIOLIPIN AB, IGM, QN <9 MPL U/mL (0-12); CARDIOLIPIN AB IGA <9 APL U/mL (0-11)
[2024-08-24 16:08] LABS: BETA-2 GLYCOPROTEIN I AB,IGG <9 (0-20); BETA-2 GLYCOPROTEIN I AB,IGM <9 (0-32)
== END | disposition home or self-care (01) ==
LOC: LAB 13:48
PROVIDERS: ATTEND Internal Medicine
DX: R76.0 Raised antibody titer (principal)

== ENCOUNTER → 2024-09-03 | Outpatient (CLI) | payer OTHER | END | disposition home or self-care (01) | LOC: US 01:42 | PROVIDERS: ATTEND Internal Medicine | DX: N28.1 Cyst of kidney, acquired (principal); K76.0 Fatty (change of) liver, not elsewhere classified; R74.8 Abnormal levels of other serum enzymes ==

== ENCOUNTER → 2025-04-13 | Outpatient (CLI) | payer OTHER ==
[2025-04-13 10:32] LABS: BASO % 0.4 % (0.0-1.0); EOS # 0.1 10*3/uL (0.0-0.4); EOS % 1.7 % (1.0-4.0); HEMATOCRIT 46.3 % (42.0-52.0); MEAN CELL VOLUME 91.9 fl (80.0-94.0); MEAN CORPUSCULAR HGB 32.1 pg (27.0-31.0); MEAN PLATELET VOLUME 9.6 fl (9.6-12.3); MONO # 0.6 10*3/uL (0.1-1.0); MONO % 8.6 % (3.0-9.0); NEUT # 3.7 10*3/uL (2.3-7.9); NEUT % 52.1 % (47.0-73.0); PLATELET COUNT AUTOMATED 276 10*3/uL (130-400); RED BLOOD COUNT 5.04 10*6/uL (4.50-5.90); RED CELL DISTRI WIDTH 13.2 % (0-14.5); WHITE BLOOD COUNT 7.1 10*3/uL (4.8-10.8)
[2025-04-13 11:09] LABS: ALKALINE PHOSPHATASE 99 U/L (46-116); BUN 15 mg/dl (9-23); CHLORIDE 105 mmol/L (98-107); CHOLESTEROL 120 mg/dL (<200); FREE T4 1.21 ng/dl (0.89-1.76); LDL CHOLESTEROL 66 mg/dL (9-159); POTASSIUM 4.2 mmol/L (3.4-5.1); SGPT/ALT 42 U/L (5-49); TOTAL PROTEIN 6.9 gm/dL (6.0-8.0); TRIGLYCERIDES 106 mg/dl (<150)
== END | disposition home or self-care (01) ==
LOC: LAB 10:06
PROVIDERS: ATTEND Internal Medicine
DX: E78.2 Mixed hyperlipidemia (principal); J44.9 Chronic obstructive pulmonary disease, unspecified; Z11.59 Encounter for screening for other viral diseases

== ENCOUNTER 2025-09-12 11:27 | Emergency (ER) | payer OTHER ==
[~2025-09-12] VITALS: Ht 185.4 cm; Wt 97.1 kg
[2025-09-12 11:42] VITALS: BP 140/91
[2025-09-12] MEDS ORDERED: VIBRAMYCIN100 MG PO (11:49)
== END 2025-09-12 12:05 | disposition home or self-care (01) ==
LOC: ED 11:27
DX: S70.362A Insect bite (nonvenomous), left thigh, initial encounter (principal); J44.9 Chronic obstructive pulmonary disease, unspecified; K21.9 Gastro-esophageal reflux disease without esophagitis; F17.210 Nicotine dependence, cigarettes, uncomplicated; Z98.890 Other specified postprocedural states; Z96.651 Presence of right artificial knee joint; Z88.8 Allergy status to other drugs, medicaments and biological substances; W57.XXXA Bitten or stung by nonvenomous insect and other nonvenomous arthropods, initial encounter; Y93.89 Activity, other specified; Y92.89 Other specified places as the place of occurrence of the external cause; Y99.8 Other external cause status